=== PATIENT | female | born 1945 | race Caucasian/White ===

== ENCOUNTER 2018-05-25 10:06 | Inpatient (IN) | payer MEDICARE, OTHER ==
[~2018-05-25] VITALS: Ht 165.1 cm; Wt 64.4 kg
--- NOTE | 2018-05-25 10:06 | NUR ---
PT BIB SELF WORSENING ANXIETY X 3 DAYS, "XANAX IS NOT HELPING.", PT IS AAOX4, NOT IN RESPIRATORY DISTRESS, V/S STABLE, KEPT RESTED AND COMFORTABLE.
--- NOTE | 2018-05-25 10:31 | NUR ---
SEEN AND EXAMINED BY DR. ALVARENGA.
--- NOTE | 2018-05-25 10:44 | NUR ---
LABS DRAWNED AND SENT TO LAB. AWAITING RESULTS.
[2018-05-25 10:47] LABS: BASOPHILS # (AUTO) 0.1 /CMM (0.0-0.2); BASOPHILS % (AUTO) 0.6 % (0.0-2.0); EOSINOPHILS % (AUTO) 0.4 % (0.0-6.0); HEMATOCRIT 38 % (33-45); HEMOGLOBIN 13.1 g/dL (11.5-14.8); LYMPHOCYTES # (AUTO) 1.8 /CMM (0.8-4.8); LYMPHOCYTES % (AUTO) 18.8 % (20.0-44.0); MEAN CORPUSCULAR HGB CONC 34 g/dl (31.0-36.0); MEAN CORPUSCULAR VOLUME 93 fL (82-100); MONOCYTES # (AUTO) 0.6 /CMM (0.1-1.30); NEUTROPHILS # (AUTO) 6.9 /CMM (1.8-8.9); NEUTROPHILS % (AUTO) 74.2 % (43.0-81.0); PLATELET COUNT (AUTO) 265 /CMM (150-450); RED BLOOD CELL COUNT(AUTO) 4.13 MIL/uL (4.0-5.2); WHITE BLOOD COUNT (AUTO) 9.4 K/uL (4.3-11.0)
[2018-05-25 10:55] LABS: CALCIUM, SERUM 9.3 mg/dL (8.5-10.1); CARBON DIOXIDE 27 mmol/L (21-32); CHLORIDE 105 mmol/L (98-107); CREATININE 0.8 mg/dL (0.6-1.3); GLUCOSE 112 mg/dL (74-106); POTASSIUM 4.1 mmol/L (3.5-5.1); SODIUM SERUM 139 mmol/L (136-145); UREA NITROGEN, BLOOD 16 mg/dL (7-18)
--- NOTE | 2018-05-25 10:55 | NUR ---
URINE SPECIMEN COLLECTED AND SENT TO LAB.
[2018-05-25 10:58] LABS: APPEARANCE,URINE Clear (CLEAR); BILIRUBIN,URINE Negative (NEGATIVE); BLOOD, URINE Trace-lysed Ery/uL (NEGATIVE); COLOR,URINE Yellow (YELLOW); KETONES,URINE Negative (NEGATIVE); LEUKOCYTE ESTERASE ,URINE Small (NEGATIVE); NITRITE, URINE Negative (NEGATIVE); PH,URINE 7.5 (5.0-8.0); PROTEIN,URINE Negative (NEGATIVE); UGLUCOSE Negative (NEGATIVE); UROBILINOGEN,URINE 0.2 EU/dL (0.2)
[2018-05-25 11:00] LABS: ALANINE AMINOTRANSFERASE 21 U/L (12-78); ALBUMIN 3.8 g/dL (3.4-5.0); ALCOHOL, BLOOD < 3 mg/dL (0-0); ALKALINE PHOSPHATASE 98 U/L (46-116); ASPARTATE AMINOTRANSFERASE 18 U/L (15-37); BILIRUBIN,DIRECT 0.1 mg/dL (0.0-0.2); BILIRUBIN,TOTAL 0.7 mg/dL (0.2-1.0); TOTAL PROTEIN, SERUM 7.5 g/dL (6.4-8.2)
[2018-05-25 11:01] LABS: ACETAMINOPHEN 0 ug/ml (10-30); SALICYLATE 0.8 mg/dL (2.8-20.0)
[2018-05-25 11:12] LABS: BACTERIA,URINE Rare /HPF (None Seen); SQUAMOUS EPITHELIAL CELL,UR Few /HPF (None Seen); WBC,URINE 20-50 /HPF (0-3)
[2018-05-25] MEDS ORDERED: AMLO2.5T2 PO (11:16)
[2018-05-25] MEDS ORDERED: ALPR0.5T8 PO (11:16)
[2018-05-25] MEDS ORDERED: LEVO125T8 PO (11:16)
--- NOTE | 2018-05-25 12:03 | NUR ---
CALLED ART TUNNEL ELASTIC OPERATOR ZIGZAG FOR EVAL OF PT
--- NOTE | 2018-05-25 13:00 | NUR ---
ART ELECTRIC MOTOR WINDER AT BEDSIDE FOR EVAL.
--- NOTE | 2018-05-25 14:16 | NUR ---
REORT GIVEN TO KODY DAS FOR DRE.
[2018-05-25 16:00] VITALS: BP 132/92
[2018-05-25] MEDS ORDERED: TEMAZEPAM 7.5 MG CAPSULE PO PRN (17:00)
[2018-05-25] MEDS ORDERED: MAG HYDROX/AL HYDROX/SIMETH 30 ML UDC PO PRN (17:00)
[2018-05-25] MEDS ORDERED: LORAZEPAM 0.5 MG TABLET PO PRN (17:00)
[2018-05-25] MEDS ORDERED: MAGNESIUM HYDROXIDE 30 ML UDC PO PRN (17:00)
--- NOTE | 2018-05-25 17:18 | NUR ---
GPS ADMITTING NOTE: PATIENT ADMITTED FROM HOME WITH HER ROOMMATE WITCH THEY WERE ARGUING LATELY. PT STATED FOR THE PAST TWO WEEKS SHE HAS BEEN CRYING PT DX WITH MDD,ANXIETY HYPOTHYROIDISM , HTN,PT EASILY OVERWHELM AND FRUSTRATED.A/O X3 AMBULATORY , SELF CARE. PT PLACED FOR 5150 HOLD FOR GD,DR GANDHI NOTIFIED WITH T.O. ADMITTING ORDERS PLACED AND CARED OUT . SKIN CHECKED AND INTACT , ALL BELONGINGS AND CONTRABAND CHECKED .WILL CONTINUE MONITORING FOR SAFETY AND BEHAVIOR Q 15 MIN.
[2018-05-25 20:00] VITALS: BP 145/67
[2018-05-25] MEDS: CEPHALEXIN MONOHYDRATE 500 MG CAPSULE PO SCH ×2 (20:47→21:22)
[2018-05-25] MEDS: ACETAMINOPHEN 325 MG TABLET PO PRN (20:47)
[2018-05-25] MEDS: ESCITALOPRAM OXALATE (10 MG) 10 MG TABLET PO SCH (22:49)
[2018-05-26 07:07] LABS: CHOLESTEROL 240 mg/dL (<200); HDL CHOLESTEROL 54 mg/dL (40-60); LDL 171 mg/dL (0-99); TRIGLYCERIDES 95 mg/dL (30-150)
[2018-05-26 07:08] LABS: ALANINE AMINOTRANSFERASE 24 U/L (12-78); ALBUMIN 3.2 g/dL (3.4-5.0); ALKALINE PHOSPHATASE 81 U/L (46-116); ASPARTATE AMINOTRANSFERASE 18 U/L (15-37); BILIRUBIN,TOTAL 0.5 mg/dL (0.2-1.0); CALCIUM, SERUM 8.7 mg/dL (8.5-10.1); CARBON DIOXIDE 24 mmol/L (21-32); CHLORIDE 103 mmol/L (98-107); CREATININE 0.8 mg/dL (0.6-1.3); GLUCOSE 99 mg/dL (74-106); POTASSIUM 4.2 mmol/L (3.5-5.1); SODIUM SERUM 136 mmol/L (136-145); TOTAL PROTEIN, SERUM 6.6 g/dL (6.4-8.2); UREA NITROGEN, BLOOD 19 mg/dL (7-18)
[2018-05-26 08:00] VITALS: BP 149/69
[2018-05-26] MEDS: LEVOTHYROXINE SODIUM 125 MCG TABLET PO SCH (09:37)
[2018-05-26] MEDS: CEPHALEXIN MONOHYDRATE 500 MG CAPSULE PO SCH ×2 (09:37→21:23)
[2018-05-26] MEDS: AMLODIPINE BESYLATE 2.5 MG TABLET PO SCH (09:37)
[2018-05-26 16:00] VITALS: BP 132/68
[2018-05-26] MEDS: ACETAMINOPHEN 325 MG TABLET PO PRN (19:32)
--- NOTE | 2018-05-26 19:44 | NUR ---
GPS/RN OPENING NOTES RECEIVED PATIENT AWAKE, SITTING IN BED, ABLE TO VERBALIZE NEEDS,REPORTED SOME CONCERNS THAT NEED TO ADDRESSED WITH SW OR CASE MGMT, WOULD LIKE TO BE DC AND REQUESTED TO INFORM MD AND CM FOR DC PLANNING. REPORTED TO HAVE PAIN, TYLENOL 650MG GIVEN FOR HEADACHE, DISCUSSED ANTIBIOTIC TX 2X DAY ORDERED, REPORTED TO PATIENT.
[2018-05-26 20:00] VITALS: BP 154/76
[2018-05-26] MEDS: ESCITALOPRAM OXALATE (10 MG) 10 MG TABLET PO SCH (21:23)
[2018-05-27 08:00] VITALS: BP 148/74
[2018-05-27] MEDS: CEPHALEXIN MONOHYDRATE 500 MG CAPSULE PO SCH ×2 (09:09→20:18)
[2018-05-27] MEDS: LEVOTHYROXINE SODIUM 125 MCG TABLET PO SCH (09:09)
[2018-05-27] MEDS: AMLODIPINE BESYLATE 2.5 MG TABLET PO SCH (09:09)
[2018-05-27 16:00] VITALS: BP 141/70
--- NOTE | 2018-05-27 17:23 | NUR ---
GPS RN NOTES-- PT'S NEED MET AND ANTICIPATED. PT HAS BEEN MED COMPLIANT AND COOPERATIVE WITH TREATMENT PLAN. PT IS NOT IN ANY APPARENT DISTRESS. PT IS AMBULATORY AND ABLE TO MAKE NEEDS KNOWN. REMINDED PT TO USE CALL STUBBS WHEN ASSISTANCE IS NEEDED.
[2018-05-27 20:12] VITALS: BP 142/73
[2018-05-27] MEDS: ESCITALOPRAM OXALATE (10 MG) 10 MG TABLET PO SCH (20:18)
[2018-05-28 08:00] VITALS: BP 126/58
[2018-05-28] MEDS: LEVOTHYROXINE SODIUM 125 MCG TABLET PO SCH (08:58)
[2018-05-28] MEDS: AMLODIPINE BESYLATE 2.5 MG TABLET PO SCH (08:58)
[2018-05-28] MEDS: CEPHALEXIN MONOHYDRATE 500 MG CAPSULE PO SCH ×2 (08:58→21:29)
--- NOTE | 2018-05-28 11:43 | NUR ---
ERICA contacted pts cousin Gasper [phone] and left a voicemail requesting call back.
--- NOTE | 2018-05-28 12:15 | NUR ---
INITIAL DISCHARGE PLAN: Patient wishes to be discharged home to [address] [place] [id number]. SW will help form a safe and proper discharge in collaboration with pt and MD.
[2018-05-28 16:00] VITALS: BP 135/81
[2018-05-28 20:00] VITALS: BP 153/76
[2018-05-28] MEDS: ESCITALOPRAM OXALATE (10 MG) 10 MG TABLET PO SCH (21:29)
[2018-05-29 08:00] VITALS: BP 139/69
[2018-05-29] MEDS: CEPHALEXIN MONOHYDRATE 500 MG CAPSULE PO SCH (08:25)
[2018-05-29] MEDS: AMLODIPINE BESYLATE 2.5 MG TABLET PO SCH (08:25)
[2018-05-29] MEDS: LEVOTHYROXINE SODIUM 125 MCG TABLET PO SCH (08:25)
--- NOTE | 2018-05-29 09:46 | NUR ---
ERICA faxed DRE packet to Dr. Samaria Peoples and pts catalytic case operator Wanda Soria at [facility] [address] [facility] [address], [place], [place] [id number] [phone] fax: [phone].
--- NOTE | 2018-05-29 12:38 | NUR ---
SW has been attempting to contact pts boyfriend Vickey [phone] and has been unable to contact him for discharge planing.
--- NOTE | 2018-05-29 12:42 | NUR ---
ERICA contacted pts cousin Gasper [phone] and informed him pt was scheduled for discharge on this present day but due to pts boyfriend not picking up call for transportation pt will not be discharged until possibly tomorrow. Pts boyfriend Vickey picked pts house keys yesterday and pt fears that if Vickey is not picking up the phone she may not be able to get into her home therefore not wanting to be discharged. Gasper stated that he would attempt to contact Vickey and also call the local PD to do a wellness check to make sure he is okay because pt also fears he may not be due to him being discharged yesterday from the hospital due to a mini stroke.
[2018-05-29 16:00] VITALS: BP 161/81
--- NOTE | 2018-05-29 16:25 | NUR ---
DISCHARGE NOTE: Pt is discharging at 5:00pm home to [address] [facility] [address] via private transportation. Pts friend Vickey [phone] will be transporting pt home. Pts mood was anxious with congruent affect. Pt denied suicidal/homicidal ideations and denied visual/auditory hallucinations. Pt will schedule a follow-up appointment with Psychiatrist: Dr. Samaria Peoples [address] [facility] [address], [place], [place] [address] [phone]. faxed DRE packet to Dr. Samaria Peoples and pts bilingual patient support caseworker Wanda Soria at [facility] [address] [facility] [address], [place], [place] [id number] [phone] fax: [phone] and left a voicemail with Wanda Soria informing her pt had been admitted to the hospital on a 5150 hold and discharging today. Pt will also schedule a follow-up appointment with Clinical Appeals Rn: Dr. Andreas Clement [address] [facility] [address] [address] [phone]. The multidisciplinary exitcare form was done, printed, signed, and given to the patient.
[2018-05-29 16:50] VITALS: BP 139/82
--- NOTE | 2018-05-29 17:00 | NUR ---
GPS CENTREX RADIO OPERATOR NOTE: PT DISCHARGE HOME TO [address] [facility] [address],PICKED UP BU HER FRIEND GABY . PT IN STABLE CONDITION , NO S/S DISTRESS NOTED, PT DENIES SI/HI, DENIES FEELING DEPRESSED. PT VSS , NO S/S DISTRESS NOTED, PT A/O X3, AMBULATORY . DR GANDHI ORDER DC PT HOME DC HOLD. EXIT CARE DONE , PRINTED , SIGN AND GIVEN TO PT. PT REFUSED SKIN ASSESSMENT. ALL BELONGINGS AND VALUABLES RETURNED TO PT.
--- NOTE | 2018-05-30 09:53 | NUR ---
SW received a phone call from pts psychologist Dr. Castaneda [phone] stating pt has an appointment with him on Monday06/01/18 at 3:00pm. He also stated that he was concerned with pts wellness as he was unable to get a hold of her via phone. SW informed him that pts phone had been turned off and her house phone was broken. ERICA provided him with pts cousins contact information.
== END 2018-05-29 17:00 | disposition home or self-care (01) | DRG 885 ==
LOC: ER 10:08 → GPS 14:42
PROVIDERS: ADMIT Psychiatry & Neurology Psychiatry; ATTEND Psychiatry & Neurology Psychiatry
DX: F33.2 Major depressive disorder, recurrent severe without psychotic features (principal); N39.0 Urinary tract infection, site not specified; E03.9 Hypothyroidism, unspecified; Z90.49 Acquired absence of other specified parts of digestive tract; Z90.710 Acquired absence of both cervix and uterus; F41.9 Anxiety disorder, unspecified; I10 Essential (primary) hypertension; Z73.6 Limitation of activities due to disability; B96.89 Other specified bacterial agents as the cause of diseases classified elsewhere
CPT/HCPCS: 36415; 80048-TC; 80053-TC; 80061-TC; 80076-TC; 80305; 81000-TC; 85025-TC; 87081-TC; 87086-TC; G0480

== ENCOUNTER 2022-12-20 17:52 | Inpatient (IN) | payer MEDICARE ==
[~2022-12-20] VITALS: Ht 165.1 cm; Wt 53.1 kg
[~2022-12-20 17:52] MED LIST: ALPR0.5T8 PO; AMLO2.5T2 PO; LEVO125T8 PO
[2022-12-20 22:35] VITALS: BP 140/82; TEMP 98.2; O2SAT 99
[2022-12-20] MEDS ORDERED: Z GUARD REMEDY 4 OZ OINT TP PRN (23:30)
[2022-12-20] MEDS ORDERED: MAGNESIUM HYDROXIDE 30 ML UDC PO PRN (23:30)
[2022-12-20] MEDS ORDERED: ACETAMINOPHEN 325 MG TABLET PO PRN (23:30)
[2022-12-20] MEDS ORDERED: ONDANSETRON HCL/PF 4 MG/2 ML VIAL IVP PRN (23:30)
[2022-12-21] VITALS (7 sets, daily range): BP systolic 132–164; BP diastolic 63–89; TEMP 97.5–98.4; O2SAT 94–100
[2022-12-21] MEDS: IV LR 1000 ML 1,000 ML IV PRN ×2 (00:06→15:25)
[2022-12-21] MEDS ORDERED: LEVOTHYROXINE SODIUM 125 MCG TABLET PO SCH (07:30)
[2022-12-21] MEDS: PANTOPRAZOLE 40 MG TABLET.DR PO SCH (08:03)
[2022-12-21] MEDS ORDERED: SERT50TA PO (08:09)
[2022-12-21] MEDS ORDERED: ARIP5TAB10 PO (08:09)
[2022-12-21] MEDS ORDERED: LEVO112T5 PO (08:09)
[2022-12-21] MEDS: ARIPIPRAZOLE 5 MG TABLET PO SCH (09:11)
[2022-12-21] MEDS: AMLODIPINE BESYLATE 2.5 MG TABLET PO SCH (09:11)
[2022-12-21] MEDS: SERTRALINE HCL 50 MG TABLET PO SCH (09:11)
[2022-12-21 09:47] LABS: IRON, SERUM 47 ug/dl (50-175); TOTAL IRON BINDING CAPACITY 224 ug/dl (250-450)
[2022-12-21 09:48] LABS: BASOPHILS % (AUTO) 0.5 % (0.0-2.0); EOSINOPHILS # (AUTO) 0.1 K/uL (0.0-0.7); EOSINOPHILS % (AUTO) 0.8 % (0.0-6.0); HEMATOCRIT 34 % (33-45); LYMPHOCYTES # (AUTO) 1.6 K/uL (0.8-4.8); LYMPHOCYTES % (AUTO) 23.3 % (20.0-44.0); MEAN CORPUSCULAR HEMOGLOBIN 31 PG (26.0-33.0); MEAN CORPUSCULAR HGB CONC 33 g/dl (31.0-36.0); MEAN CORPUSCULAR VOLUME 94 fL (82-100); MONOCYTES # (AUTO) 0.3 K/uL (0.1-1.30); MONOCYTES % (AUTO) 4.8 % (2.0-12.0); NEUTROPHILS # (AUTO) 4.8 K/uL (1.8-8.9); NEUTROPHILS % (AUTO) 70.6 % (43.0-81.0); PLATELET COUNT (AUTO) 165 K/uL (150-450); RED BLOOD CELL COUNT(AUTO) 3.55 MIL/uL (4.0-5.2); RED CELL DISTRIBUTION WIDTH 13.8 % (11.5-15.0); WHITE BLOOD COUNT (AUTO) 6.8 K/uL (4.3-11.0)
[2022-12-21 09:49] LABS: CREATININE 1.1 mg/dL (0.6-1.3); MAGNESIUM 1.8 mg/dL (1.8-2.4); PHOSPHORUS 2.9 mg/dL (2.5-4.9); POTASSIUM 3.3 mmol/L (3.5-5.1)
[2022-12-21 09:57] LABS: THYROID STIMULATING HORMONE 4.809 uIU/mL (0.358-3.74)
[2022-12-21 10:37] LABS: FERRITIN 329 ng/mL (8-388)
[2022-12-21] MEDS: ENOXAPARIN SODIUM 40 MG/0.4 ML DISP.SYRIN SQ SCH ×2 (20:53)
[2022-12-22] VITALS: BP_SYST 109; BP_SYST 139; BP_SYST 144; BP_DIAS 69; BP_DIAS 73; BP_DIAS 84; TEMP 97.9; O2SAT 97
[2022-12-22 05:24] LABS: APPEARANCE,URINE CLEAR (CLEAR); BILIRUBIN,URINE NEGATIVE (NEGATIVE); BLOOD, URINE 1+ Ery/uL (NEGATIVE); COLOR,URINE YELLOW (YELLOW); KETONES,URINE NEGATIVE (NEGATIVE); LEUKOCYTE ESTERASE ,URINE NEGATIVE (NEGATIVE); NITRITE, URINE NEGATIVE (NEGATIVE); PH,URINE 6.5 (5.0-8.0); PROTEIN,URINE NEGATIVE (NEGATIVE); UGLUCOSE NEGATIVE (NEGATIVE); UROBILINOGEN,URINE 0.2 EU/dL (0.2)
[2022-12-22 06:39] LABS: BASOPHILS % (AUTO) 0.4 % (0.0-2.0); EOSINOPHILS % (AUTO) 0.2 % (0.0-6.0); HEMATOCRIT 37 % (33-45); HEMOGLOBIN 12.2 g/dL (11.5-14.8); LYMPHOCYTES # (AUTO) 0.9 K/uL (0.8-4.8); LYMPHOCYTES % (AUTO) 15.1 % (20.0-44.0); MEAN CORPUSCULAR HEMOGLOBIN 31 PG (26.0-33.0); MEAN CORPUSCULAR HGB CONC 33 g/dl (31.0-36.0); MEAN CORPUSCULAR VOLUME 95 fL (82-100); MONOCYTES # (AUTO) 0.5 K/uL (0.1-1.30); MONOCYTES % (AUTO) 7.8 % (2.0-12.0); NEUTROPHILS # (AUTO) 4.5 K/uL (1.8-8.9); NEUTROPHILS % (AUTO) 76.5 % (43.0-81.0); PLATELET COUNT (AUTO) 147 K/uL (150-450); RED BLOOD CELL COUNT(AUTO) 3.91 MIL/uL (4.0-5.2); RED CELL DISTRIBUTION WIDTH 14.2 % (11.5-15.0); WHITE BLOOD COUNT (AUTO) 5.9 K/uL (4.3-11.0)
[2022-12-22 06:54] LABS: CALCIUM, SERUM 8.6 mg/dL (8.5-10.1); CARBON DIOXIDE 27 mmol/L (21-32); CHLORIDE 107 mmol/L (98-107); CREATININE 0.4 mg/dL (0.6-1.3); GLUCOSE 117 mg/dL (74-106); POTASSIUM 3.1 mmol/L (3.5-5.1); SODIUM SERUM 142 mmol/L (136-145); UREA NITROGEN, BLOOD 9 mg/dL (7-18)
[2022-12-22 07:30] VITALS: BP 169/90; TEMP 97.7; O2SAT 99
[2022-12-22] MEDS ORDERED: LEVOTHYROXINE SODIUM 112 MCG TABLET PO SCH (07:30)
[2022-12-22] MEDS: IV LR 1000 ML 1,000 ML IV PRN (07:53)
[2022-12-22] MEDS: LEVOTHYROXINE SODIUM 125 MCG TABLET PO SCH (08:00)
[2022-12-22] MEDS: PANTOPRAZOLE 40 MG TABLET.DR PO SCH (08:00)
[2022-12-22] MEDS: SERTRALINE HCL 50 MG TABLET PO SCH (09:09)
[2022-12-22] MEDS: ARIPIPRAZOLE 5 MG TABLET PO SCH (09:10)
[2022-12-22] MEDS: POTASSIUM CHLORIDE 20 MEQ TAB.PRT.SR PO SCH ×3 (09:10→11:37)
[2022-12-22] MEDS: AMLODIPINE BESYLATE 2.5 MG TABLET PO SCH (09:10)
[2022-12-22] MEDS: PROSOURCE / PROSTAT (PYXIS) 30 ML UDC PO SCH ×2 (13:48→17:07)
[2022-12-22 16:00] VITALS: BP 153/89; TEMP 98.2; O2SAT 97
[2022-12-22] MEDS: ENSURE ENLIVE 237 ML LIQUID (VANILLA) PO SCH (17:10)
[2022-12-22 20:00] VITALS: BP 138/81; TEMP 99.2; O2SAT 98
[2022-12-22] MEDS: ENOXAPARIN SODIUM 40 MG/0.4 ML DISP.SYRIN SQ SCH (20:13)
[2022-12-23] MEDS: LEVOTHYROXINE SODIUM 125 MCG TABLET PO SCH (07:48)
[2022-12-23] MEDS: PANTOPRAZOLE 40 MG TABLET.DR PO SCH (07:48)
[2022-12-23 07:51] LABS: BASOPHILS % (AUTO) 0.2 % (0.0-2.0); EOSINOPHILS % (AUTO) 0.5 % (0.0-6.0); HEMATOCRIT 34 % (33-45); HEMOGLOBIN 11.5 g/dL (11.5-14.8); LYMPHOCYTES # (AUTO) 1.9 K/uL (0.8-4.8); LYMPHOCYTES % (AUTO) 20.3 % (20.0-44.0); MEAN CORPUSCULAR HEMOGLOBIN 32 PG (26.0-33.0); MEAN CORPUSCULAR HGB CONC 34 g/dl (31.0-36.0); MEAN CORPUSCULAR VOLUME 94 fL (82-100); MONOCYTES # (AUTO) 0.6 K/uL (0.1-1.30); MONOCYTES % (AUTO) 6.2 % (2.0-12.0); NEUTROPHILS # (AUTO) 6.9 K/uL (1.8-8.9); NEUTROPHILS % (AUTO) 72.8 % (43.0-81.0); PLATELET COUNT (AUTO) 161 K/uL (150-450); RED BLOOD CELL COUNT(AUTO) 3.61 MIL/uL (4.0-5.2); RED CELL DISTRIBUTION WIDTH 13.7 % (11.5-15.0); WHITE BLOOD COUNT (AUTO) 9.5 K/uL (4.3-11.0)
[2022-12-23 08:00] VITALS: BP 145/75; TEMP 97.5; O2SAT 100
[2022-12-23 08:15] LABS: CALCIUM, SERUM 8.9 mg/dL (8.5-10.1); CREATININE 0.8 mg/dL (0.6-1.3); MAGNESIUM 1.7 mg/dL (1.8-2.4); POTASSIUM 3.7 mmol/L (3.5-5.1)
[2022-12-23] MEDS: PROSOURCE / PROSTAT (PYXIS) 30 ML UDC PO SCH ×2 (08:52→12:11)
[2022-12-23] MEDS: ENSURE ENLIVE 237 ML LIQUID (VANILLA) PO SCH (08:52)
[2022-12-23] MEDS: SERTRALINE HCL 50 MG TABLET PO SCH (08:59)
[2022-12-23] MEDS: ARIPIPRAZOLE 5 MG TABLET PO SCH (08:59)
[2022-12-23 09:00] VITALS: BP 147/75
[2022-12-23] MEDS: AMLODIPINE BESYLATE 2.5 MG TABLET PO SCH (09:00)
[2022-12-23] MEDS ORDERED: Prosource PO (09:33)
[2022-12-23] MEDS ORDERED: LACT-246 PO (09:33)
[2022-12-23] MEDS ORDERED: PANT40TA49 PO (09:33)
[2022-12-23] MEDS ORDERED: LEVO125T PO (09:33)
[2022-12-23] MEDS ORDERED: MAGN400T26 PO (09:33)
[2022-12-23] MEDS ORDERED: MAGNESIUM OXIDE 400 MG TABLET PO ONE (10:00)
== END 2022-12-23 16:09 | DRG 641 ==
LOC: TELE 21:00 → MED 12-22 11:54
PROVIDERS: ADMIT Nurse Practitioner Family; ATTEND Nurse Practitioner Acute Care
DX: E86.0 Dehydration (principal); I10 Essential (primary) hypertension; E87.20 Acidosis, unspecified; D64.9 Anemia, unspecified; E03.9 Hypothyroidism, unspecified; R55 Syncope and collapse; F32.A Depression, unspecified; E87.6 Hypokalemia; G25.0 Essential tremor; W19.XXXA Unspecified fall, initial encounter; Y93.9 Activity, unspecified; Y92.009 Unspecified place in unspecified non-institutional (private) residence as the place of occurrence of the external cause; Z20.822 Contact with and (suspected) exposure to COVID-19; Z87.891 Personal history of nicotine dependence; R29.6 Repeated falls; R53.1 Weakness; L89.159 Pressure ulcer of sacral region, unspecified stage
CPT/HCPCS: 36415; 80048-TC; 80061-TC; 82728-TC; 83540-TC; 83605-TC; 83735-TC; 84100-TC; 84439-TC; 84443-TC; 84484-TC; 85025-TC; 93307-TC; 93880-TC; 97110-TC; 97112-TC; 97116-TC; 97530-TC; A4223; G0378; J1650; J7120